=== PATIENT | female | born 1995 | race Two or more races ===

== ENCOUNTER 2022-03-25 08:44 | Emergency (ER) | payer OTHER ==
[~2022-03-25] VITALS: Ht 167.6 cm; Wt 108.4 kg
[2022-03-25] MEDS ORDERED: VENLAFAXINE H37.5 M1 PO (09:17)
[2022-03-25] MEDS ORDERED: VYVANSE30 MG PO (09:17)
== END 2022-03-25 15:03 | disposition home or self-care (01) ==
LOC: ER 08:44
DX: S00.93XA Contusion of unspecified part of head, initial encounter (principal); S14.109A Unspecified injury at unspecified level of cervical spinal cord, initial encounter; V49.9XXA Car occupant (driver) (passenger) injured in unspecified traffic accident, initial encounter; Y93.9 Activity, unspecified; Y92.413 State road as the place of occurrence of the external cause; Y99.9 Unspecified external cause status; M25.512 Pain in left shoulder; M79.602 Pain in left arm; M79.605 Pain in left leg; Z88.0 Allergy status to penicillin

== ENCOUNTER → 2022-11-30 | Emergency (ER) | payer OTHER ==
[~2022-11-30] VITALS: Ht 167.6 cm; Wt 102.5 kg
[~2022-11-30] MED LIST: VENLAFAXINE H37.5 M1 PO; VYVANSE30 MG PO
== END | disposition left against medical advice (07) ==
LOC: ER 00:45
DX: Z53.21 Procedure and treatment not carried out due to patient leaving prior to being seen by health care provider (principal)